=== PATIENT | male | born 1995 | race Caucasian/White ===

== ENCOUNTER 2016-11-17 22:00 | Emergency (ER) | payer OTHER ==
[~2016-11-17] VITALS: Ht 167.6 cm; Wt 93.5 kg
[2016-11-17 22:19] VITALS: BP 127/77
--- NOTE | 2016-11-17 23:03 | NUR ---
TO ER BED 4
--- NOTE | 2016-11-17 23:06 | NUR ---
21 Y/O W/C/O N/V/D, DIZZINESS, AND HEADACHE X 3 DAYS. PT STATES WAS SEEN THIS MORNING AT URGENT CARE AND PRESCRIBED ZOFRAN AND LOPERAMIDE NOT FEELING BETTER. ER MD MADE AWARE.
[2016-11-17 23:15] LABS: HEMOGLOBIN 17.2 g/dL (12.0-18.0); MEAN CORPUSCULAR HEMOGLOBIN 26 pg (27-31); MEAN CORPUSCULAR HGB CONC 32 g/dL (33-37); MEAN CORPUSCULAR VOLUME 81 fL (80-94); PLATELET COUNT (AUTO) 234 K/uL (140-450); RED BLOOD CELL COUNT(AUTO) 6.55 MIL/uL (4.20-6.10); RED CELL DISTRIBUTION WIDTH 13.3 % (11.6-13.7); WHITE BLOOD COUNT (AUTO) 12.4 K/uL (4.8-10.8)
[2016-11-17] MEDS ORDERED: ONDANSETRON 4 MG/2 ML VIAL IVP ONE (23:15)
[2016-11-17] MEDS ORDERED: NACL 0.9% 1,000 ML IV ONE (23:15)
[2016-11-17 23:27] LABS: ANION GAP 15.2 (8-16); CARBON DIOXIDE 26.8 mmol/L (21-32); CREATININE 1.1 mg/dL (0.7-1.3)
[2016-11-17 23:30] LABS: LYMPHOCYTES % (MANUAL) 5 % (20-46); MONOCYTES % (MANUAL) 4 % (5-12)
[2016-11-17 23:32] LABS: PROTHROMBIN TIME 12.2 secs (10.8-13.4)
[2016-11-17] MEDS ORDERED: ONDANSETRON 4 MG/2 ML VIAL ONE (23:33)
[2016-11-17 23:35] LABS: ALBUMIN 4.5 g/dL (3.4-5.0); TOTAL BILIRUBIN 0.6 mg/dL (0.0-1.0)
--- NOTE | 2016-11-17 23:55 | NUR ---
PT RESTINGIN BED, FAMILY AT BEDSIDE. NO S/S OF DISTRESS NOTED AT THE MOMENT.
[2016-11-18 00:52] VITALS: BP 118/71
--- NOTE | 2016-11-18 00:52 | NUR ---
Patient discharged with v/s stable. Written and verbal after care instructions given and explained. Patient alert, oriented and verbalized understanding of instructions. Ambulatory with steady gait. All questions addressed prior to discharge. ID band removed. Patient advised to follow up with PMD OR RETURN TO ER IF CONDITION WORSENS. Rx of TRAMADOL, AND ZOFRAN given. Patient educated on indication of medication including possible reaction and side effects. Opportunity to ask questions provided and answered.
== END 2016-11-18 00:52 | disposition home or self-care (01) ==
LOC: MED 22:00
DX: K52.9 Noninfective gastroenteritis and colitis, unspecified (principal); R03.0 Elevated blood-pressure reading, without diagnosis of hypertension
CPT/HCPCS: 36415; 80053; 85025; 85610; 85730; 96361; 96374; 99284; J2405; J7030